=== PATIENT | male | born 1985 | race Caucasian/White ===

== ENCOUNTER 2016-11-12 02:46 | Emergency (ER) | payer OTHER ==
[2016-11-12 03:13] VITALS: BP 121/63; PULSE 68; TEMP 98.2; BMI 110.9
[2016-11-12] MEDS ORDERED: OXYCODONE/APAP 5/325MG COMBO TABLET PO ONE (03:14)
[2016-11-12] MEDS ORDERED: LIDOCAINE HCL 2% JELLY (5 ML/TUBE) ONE (03:18)
[2016-11-12] MEDS ORDERED: OXYCODONE/APAP 5/325MG COMBO TABLET ONE (03:18)
[2016-11-12] MEDS ORDERED: LIDOCAINE HCL 2% JELLY 10 ML CARTRIDGE PR ONE (03:19)
--- NOTE | 2016-11-12 03:34 | PDOC ---
History of Present Illness - General History Source: Patient <Thang Tee - Last Filed: 11/12/16 03:13> - General History Source: Patient Exam Limitations: No Limitations - History of Present Illness Initial Comments: 11/12/16 03:38 Patient is a 30 year old male with no past medical history who presents to the ED with complaint of painful hemorrhoids. He notes that he cannot sit down secondary to the pain. Patient notes that when they are bad they pop out, but once they are done they resolve on their own. Allergies: none PCP - Dr. Brian <Johanna Palm - Last Filed: 11/12/16 03:39> - General Stated Complaint: HEMORRHOIDS Time Seen by Provider: 11/12/16 03:10 Past History - Immunization History Immunization Up to Date: Yes - Psycho/Social/Smoking Cessation Hx Anxiety: No Suicidal Ideation: No Smoking History: Never smoked Have you smoked in the past 12 months: No Information on smoking cessation initiated: No Hx Alcohol Use: No Drug/Substance Use Hx: No Substance Use Type: None <NayThang - Last Filed: 11/12/16 03:13> <Johanna Palm - Last Filed: 11/12/16 03:39> - Past Medical History Allergies/Adverse Reactions: Allergies Allergy/AdvReac Type Severity Reaction Status Date / Time No Known Allergies Allergy Verified 11/12/16 03:21 Home Medications: Ambulatory Orders Oxycodone HCl/Acetaminophen [Percocet 5-325 mg Tablet] 1 - 2 tab PO Q6H #20 tablet MDD 4 11/12/16 Witch Lori 50% (Tucks) [Tucks Witch Lori Pads] 1 pad NR TID PRN 11/12/16 Review of Systems - Review of Systems Able to Perform ROS?: Yes Comments:: 11/12/16 03:38 CONSTITUTIONAL: Absent: fever, no chills, no fatigue EYES: Absent: visual changes ENT: Absent: ear pain, no sore throat CARDIOVASCULAR: Absent: chest pain, no palpitations RESPIRATORY: Absent: cough, no SOB GI: Present: hemarrhoids Absent: abdominal pain, no nausea, no vomiting, no constipation, no diarrhea GENITOURINARY: Absent: dysuria, no frequency, no hematuria MUSCULOSKELETAL: Absent: back pain, no arthralgia, no myalgia SKIN: Absent: rash <Johanna Palm - Last Filed: 11/12/16 03:39> *Physical Exam - Vital Signs Last Vital Signs Temp Pulse Resp BP Pulse Ox 98.2 F 68 18 121/63 98 11/12/16 03:11 11/12/16 03:11 11/12/16 03:11 11/12/16 03:11 11/12/16 03:11 <Thang Tee - Last Filed: 11/12/16 03:13> - Vital Signs Last Vital Signs Temp Pulse Resp BP Pulse Ox 98.2 F 68 18 121/63 98 11/12/16 03:11 11/12/16 03:11 11/12/16 03:11 11/12/16 03:11 11/12/16 03:11 - Physical Exam Comments: 11/12/16 03:38 GENERAL: Well-appearing, well-nourished. No apparent distress. HEENT: Normocephalic, atraumatic. PERRL, EOM intact. CARDIOVASCULAR: Normal S1, S2. Regular rate and rhythm. PULMONARY: Clear to auscultation bilaterally. ABDOMEN: Soft, non-distended, non-tender. EXTREMITIES: Normal ROM in all four extremities. No gross deformities. SKIN: Warm, dry. No rash NEUROLOGICAL: No focal neurological deficits. RECTAL EXAM: +internal hemorrhoids, no external, no bleeding, normal tone, mildly tender, non thrombosed <Johanna Palm - Last Filed: 11/12/16 03:39> ED Treatment Course - Medications Given in the ED: ED Medications Discontinued Medications Generic Name Dose Route Start Last Admin Trade Name Galdino PRN Reason Stop Dose Admin Lidocaine HCl 20 ml 11/12/16 03:19 11/12/16 03:20 Xylocaine 2% Uro-Jet MA 11/12/16 03:20 20 ml ONCE ONE Administration Oxycodone/Acetaminophen 1 combo 11/12/16 03:14 11/12/16 03:20 Percocet 5/325 - PO 11/12/16 03:15 1 combo ONCE ONE Administration <Johanna Palm - Last Filed: 11/12/16 03:39> Medical Decision Making - Medical Decision Making 11/12/16 03:35 Dr. Tee: The scribe's documentation has been prepared under my direction and personally reviewed by me in its entirery. I confirm that the note above accurately reflects all work, treatment, procedures, and medical decision making performed by me. <Thang Tee - Last Filed: 11/12/16 03:13> *DC/Admit/Observation/Transfer - Discharge Dispostion Admit: No <Thang Tee - Last Filed: 11/12/16 03:13> - Attestations Scribe Attestion: 11/12/16 03:38 Documentation prepared by GLENNA Perez, acting as expert medical writer for Thang Tee DO. <Johanna Palm - Last Filed: 11/12/16 03:39> Diagnosis at time of Disposition: Hemorrhoid Qualifiers: Hemorrhoid type: unspecified Qualified Code(s): K64.9 - Unspecified hemorrhoids - Discharge Dispostion Disposition: HOME - Prescriptions Prescriptions: Oxycodone HCl/Acetaminophen [Percocet 5-325 mg Tablet] 1 - 2 tab PO Q6H #20 tablet MDD 4 - Referrals Referrals: Toby Brian MD [Primary Care Provider] - Lanre Knowles MD [Staff Physician] - - Patient Instructions Printed Discharge Instructions: DI for Hemorrhoids Additional Instructions: avoid driving when taking Percocet. Decrease starch intake. Increase your fluid and fruits and vegetables. Follow up with the doctor referred to ypu in the ER. - Post Discharge Activity Work/School Note: Back to Work
== END 2016-11-12 03:48 | disposition home or self-care (01) ==
LOC: JER 02:46
DX: K64.9 Unspecified hemorrhoids (principal)
CPT/HCPCS: 99282-25

== ENCOUNTER 2017-05-12 05:00 | Emergency (ER) | payer OTHER ==
[2017-05-12 05:32] VITALS: BP 112/56; PULSE 50; TEMP 98.2; BMI 62.8
[2017-05-12] MEDS ORDERED: LIDOCAINE 2%/EPINEPHRINE 1:100000 (50 ML MD VIAL) INF ONE (05:35)
--- NOTE | 2017-05-12 06:21 | PDOC ---
History of Present Illness - General History Source: Patient Exam Limitations: No Limitations - History of Present Illness Initial Comments: 05/12/17 06:41 The patient is a 31-year-old male with no significant past medical history, and presents to the emergency department with thrombosed external hemorrhoids for the past few days. The patient has a history of recurrent thrombosed hemorrhoids (alternating between external and internal) over the last year. He states the pain has become unbearable now. He reports he took oxycontin and used topical lidocaine prior to arrival with moderate relief of pain. He notes he is frequently constipated. He states his PMD has previously done a hemorrhoidectomy to relieve the pain. 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 The patient denies chest pain or shortness of breath. The patient denies fever, chills, nausea, vomit, diarrhea and constipation. The patient denies dysuria, frequency, urgency and hematuria. Allergies: NKDA Past Surgical History: hemorrhoidectomy Social History: No toxic habits reported PCP: Dr. Brian <April Amato - Last Filed: 05/12/17 06:41> <Carmencita Cowan - Last Filed: 05/12/17 06:50> - General Chief Complaint: Pain Stated Complaint: HEMORRHOIDS Time Seen by Provider: 05/12/17 05:05 Past History <April Amato - Last Filed: 05/12/17 06:41> - Immunization History Immunization Up to Date: Yes - Psycho/Social/Smoking Cessation Hx Anxiety: No Suicidal Ideation: No Smoking History: Never smoked Have you smoked in the past 12 months: No Hx Alcohol Use: No Drug/Substance Use Hx: No Substance Use Type: None <Carmencita Cowan - Last Filed: 05/12/17 06:50> - Past Medical History Allergies/Adverse Reactions: Allergies Allergy/AdvReac Type Severity Reaction Status Date / Time No Known Allergies Allergy Verified 05/12/17 05:37 Home Medications: Ambulatory Orders NK [No Known Home Medication] 05/12/17 Review of Systems - Review of Systems Able to Perform ROS?: Yes Comments:: 05/12/17 06:41 CONSTITUTIONAL: Absent: fever, chills, diaphoresis, generalized weakness, malaise, loss of appetite HEENT: Absent: rhinorrhea, nasal congestion, throat pain, throat swelling, difficulty swallowing, mouth swelling, ear pain, eye pain, visual changes CARDIOVASCULAR: Absent: chest pain, syncope, palpitations, irregular heart rate, lightheadedness , peripheral edema RESPIRATORY: Absent: cough, shortness of breath, dyspnea with exertion, orthopnea, wheezing, stridor, hemoptysis GASTROINTESTINAL: Present: (+) hemorrhoids Absent: abdominal pain, abdominal distension, nausea, vomiting, diarrhea, constipation, melena, hematochezia GENITOURINARY: Absent: dysuria, frequency, urgency, hesitancy, hematuria, flank pain, genital pain MUSCULOSKELETAL: Absent: myalgia, arthralgia, joint swelling SKIN: Absent: rash, itching, pallor HEMATOLOGIC/IMMUNOLOGIC: Absent: easy bleeding, easy bruising, lymphadenopathy, frequent infections NEUROLOGIC: Absent: headache, focal weakness or paresthesias, dizziness, unsteady gait, seizure, mental status changes, bladder or bowel incontinence PSYCHIATRIC: Absent: anxiety, depression, suicidal or homicidal ideation, hallucinations. <April Amato - Last Filed: 05/12/17 06:41> *Physical Exam - Vital Signs Last Vital Signs Temp Pulse Resp BP Pulse Ox 98.2 F 50 L 18 112/56 98 05/12/17 05:25 05/12/17 05:25 05/12/17 05:25 05/12/17 05:25 05/12/17 05:25 - Physical Exam Comments: 05/12/17 06:41 GENERAL: Well developed, well nourished. Awake and alert. No acute distress. HEENT: Normocephalic, atraumatic. PERRLA, EOMI. No conjunctival pallor. Sclera are non- icteric. Moist mucous membranes. Oropharynx is clear. NECK: Supple. Full ROM. No JVD. Carotid pulses 2+ and symmetric, without bruits. No thyromegaly. No lymphadenopathy. CARDIOVASCULAR: Regular rate and rhythm. No murmurs, rubs, or gallops. Distal pulses are 2+ and symmetric. PULMONARY: No evidence of respiratory distress. Lungs clear to auscultation bilaterally. No wheezing, rales or rhonchi. ABDOMINAL: Soft. Non-tender. Non-distended. No rebound or guarding. No organomegaly. Normoactive bowel sounds. RECTAL: (+) Large 2 x 1 cm thrombosed external hemorrhoid on left anal region MUSCULOSKELETAL Normal range of motion at all joints. No bony deformities or tenderness. No CVA tenderness. EXTREMITIES: No cyanosis. No clubbing. No edema. No calf tenderness. SKIN: Warm and dry. Normal capillary refill. No rashes. No jaundice. NEUROLOGICAL: Alert, awake, appropriate. Cranial nerves 2-12 intact. No deficits to light touch and temperature in face, upper extremities and lower extremities. No motor deficits in the in face, upper extremities and lower extremities. Normoreflexic in the upper and lower extremities. Normal speech. Toes are down- going bilaterally. Gait is normal without ataxia. PSYCHIATRIC: Cooperative. Good eye contact. Appropriate mood and affect. <April Amato - Last Filed: 05/12/17 06:41> - Vital Signs Last Vital Signs Temp Pulse Resp BP Pulse Ox 98.2 F 50 L 18 112/56 98 05/12/17 05:25 05/12/17 05:25 05/12/17 05:25 05/12/17 05:25 05/12/17 05:25 <Carmencita Cowan - Last Filed: 05/12/17 06:50> Procedures - Incision and Drainage I&D Site: Left: Other (hemorrhoidectomy) Betadine cleansed: Yes Anesthesia: 1% Lidocaine Volume(ml): 3 Blade Size: 11 Dressing: Yes (viscous lidocaine and gauze) <Carmencita Cowan - Last Filed: 05/12/17 06:50> ED Treatment Course - Medications Given in the ED: ED Medications Discontinued Medications Generic Name Dose Route Start Last Admin Trade Name Freq PRN Reason Stop Dose Admin Lidocaine/Epinephrine 2 ml 05/12/17 05:35 05/12/17 05:45 Xylocaine 2%-Epi 1:100,000 INF 05/12/17 05:36 2 ml ONCE ONE Administration <April Amato - Last Filed: 05/12/17 06:41> - Medications Given in the ED: ED Medications Discontinued Medications Generic Name Dose Route Start Last Admin Trade Name Freq PRN Reason Stop Dose Admin Lidocaine/Epinephrine 2 ml 05/12/17 05:35 05/12/17 05:45 Xylocaine 2%-Epi 1:100,000 INF 05/12/17 05:36 2 ml ONCE ONE Administration <Carmencita Cowan - Last Filed: 05/12/17 06:50> Medical Decision Making - Medical Decision Making 05/12/17 06:49 Pt has painful external hemorrhoids. He had an elliptical incision and removal of small blood clot. Area was dressed with sterile gauze and vicous lidocaine Home with general surg follow up and sitz baths. Return for fever or infection or pain. <Carmencita Cowan - Last Filed: 05/12/17 06:50> *DC/Admit/Observation/Transfer - Attestations Scribe Attestion: 05/12/17 06:42 Documentation prepared by April Amato, acting as medical secretary for Carmencita Cowan MD. <April Amato - Last Filed: 05/12/17 06:41> - Discharge Dispostion Admit: No <Carmencita Cowan - Last Filed: 05/12/17 06:50> Diagnosis at time of Disposition: Thrombosed external hemorrhoid - Discharge Dispostion Disposition: HOME Condition at time of disposition: Stable - Referrals Referrals: Toby Brian MD [Primary Care Provider] - Barbara Montelongo MD [Staff Physician] - Nallely Fish MD [Staff Physician] - - Patient Instructions Printed Discharge Instructions: DI for Hemorrhoid Banding, DI for Hemorrhoidectomy, Hemorrhoids - Post Discharge Activity Work/School Note: Back to Work
== END 2017-05-12 06:46 | disposition home or self-care (01) ==
LOC: JER 05:00
PROC: 06BY0ZC Excision of Hemorrhoidal Plexus, Open Approach (ICD-10-PCS; principal; 2017-05-12)
DX: K64.5 Perianal venous thrombosis (principal)
CPT/HCPCS: 99282-25

== ENCOUNTER 2017-05-12 14:20 | Emergency (ER) | payer OTHER ==
[2017-05-12 14:45] VITALS: BMI 28.5
--- NOTE | 2017-05-12 15:41 | PDOC ---
History of Present Illness - General Chief Complaint: Hemorrhoids Stated Complaint: REVISIT Time Seen by Provider: 05/12/17 15:03 - History of Present Illness Initial Comments: 05/12/17 15:38 31 yo M with h/o recurrent hemorrhoids who presents with external hemorrhoids. Pt. recently evaluated in [facility] ED at 0630 ( 05/12) for painful external hemorrhoids and treated with elliptical incision and removal of small blood clot. He returns to ED with continued symptoms of rectal pain, and constipation. States that his visualized hemorrhoid with continued thrombosis. Denies any associated symptoms Past History - Past Medical History Allergies/Adverse Reactions: Allergies Allergy/AdvReac Type Severity Reaction Status Date / Time No Known Allergies Allergy Verified 05/12/17 14:45 Home Medications: Ambulatory Orders Polyethylene Glycol 3350 [Miralax (For Bowel Prep) -] 17 gm PO DAILY #1 bottle 05/12/17 Other medical history: hemmorhoids - Immunization History Immunization Up to Date: Yes - Psycho/Social/Smoking Cessation Hx Anxiety: No Suicidal Ideation: No Smoking History: Never smoked Have you smoked in the past 12 months: No Hx Alcohol Use: Yes ("socially") Drug/Substance Use Hx: No Substance Use Type: None Review of Systems - Review of Systems Comments:: 05/12/17 16:26 GENERAL/CONSTITUTIONAL: No fever or chills. No weakness. HEAD, EYES, EARS, NOSE AND THROAT: No change in vision. No ear pain or discharge. No sore throat.- CARDIOVASCULAR: No chest pain or shortness of breath RESPIRATORY: No cough, wheezing, or hemoptysis. GASTROINTESTINAL: No nausea, vomiting, diarrhea or constipation. GENITOURINARY: No dysuria, frequency, or change in urination. MUSCULOSKELETAL: No joint or muscle swelling or pain. No neck or back pain. SKIN: No rash NEUROLOGIC: No headache, vertigo, loss of consciousness, or change in strength/ sensation. ENDOCRINE: No increased thirst. No abnormal weight change HEMATOLOGIC/LYMPHATIC: No anemia, easy bleeding, or history of blood clots. ALLERGIC/IMMUNOLOGIC: No hives or skin allergy. *Physical Exam - Vital Signs Last Vital Signs Temp Pulse Resp BP Pulse Ox 98.6 F 60 16 118/66 95 05/12/17 14:42 05/12/17 14:42 05/12/17 14:42 05/12/17 14:42 05/12/17 14:42 - Physical Exam Comments: 05/12/17 16:26 GENERAL: Awake, alert, and fully oriented, in no acute distress LUNGS: No distress, speaks full sentences, clear to auscultation bilaterally HEART: Regular rate and rhythm, normal S1 and S2, no murmurs, rubs or gallops, peripheral pulses normal and equal bilaterally. Rectum: + 2 x 2 cm external hemorrhoid with evidence of thrombosis. SKIN: Warm, Dry, normal turgor, no rashes or lesions noted. Procedures - Additional Procedures Additional Procedures: other (Hemmorhoid Thrombectomy with ) Medical Decision Making - Medical Decision Making 05/12/17 16:23 31 yo M with h/o recurrent hemorrhoids who presents with external hemorrhoids. Pt. returns to ED following visit at 0630 ( 05/12) for continued hemmorhoidal pain and concern for continued thrombosis despite earlier thrombectomy. Physical exam reveals 2 x 2 cm hemmorhoid with evidence of thrombosis. ED Course: - hemorrhoid thrombectomy - Large hemorrhoidal clots removed. Pt. clinical status improved. Pt counseled on constipation control and told to f/u with Dr. Sumanth Patton for surgical eval. *DC/Admit/Observation/Transfer Diagnosis at time of Disposition: Thrombosed external hemorrhoid - Discharge Dispostion Disposition: HOME Condition at time of disposition: Improved Admit: No - Prescriptions Prescriptions: Polyethylene Glycol 3350 [Miralax (For Bowel Prep) -] 17 gm PO DAILY #1 bottle - Referrals Referrals: Sumanth Patton MD [Staff Physician] - Toby Brian MD [Primary Care Provider] - - Patient Instructions Additional Instructions: Please return to ED if you experience fevers/chills, nausea or vomitting, or worsening symptoms. Please take Miralax regularly for constipation. Print Language: BULGARIAN
--- NOTE | 2017-05-12 16:04 | PDOC ---
Attending Attestation - Resident Resident Name: Walter Balderasson - ED Attending Attestation I have performed the following: I have examined & evaluated the patient, The case was reviewed & discussed with the resident, I agree w/resident's findings & plan, Exceptions are as noted - HPI HPI: 05/12/17 16:04 31-year-old male with history of external hemorrhoids presents back to the emergency department for recurrence of external thrombosed hemorrhage. The patient had an incision performed for the throat was hemorrhoid but the pain recurred and the thrombosed recurred. Because of the pain, the patient return to the ER. - Physicial Exam PE: 05/12/17 16:07 GENERAL: Awake, alert, and fully oriented, in no acute distress. HEAD: No signs of trauma EYES: PERRLA, EOMI, sclera anicteric, conjunctiva clear ENT: Auricles normal inspection, hearing grossly normal, nares patent, oropharynx clear without exudates. NECK: Normal ROM, supple, no lymphadenopathy, JVD, or masses EXTREMITIES: Normal range of motion, no edema. No clubbing or cyanosis. No cords, erythema, or tenderness NEUROLOGICAL: Cranial nerves II through XII grossly intact. Normal speech, normal gait SKIN: Warm, Dry, normal turgor, no rashes or lesions noted. RECTUM: Large ~3x3 cm thrombosed external hemorrhoid on R side of rectum. - Medical Decision Making 05/12/17 16:08 Vital Signs Temp Pulse Resp BP Pulse Ox 98.6 F 60 16 118/66 95 05/12/17 14:42 05/12/17 14:42 05/12/17 14:42 05/12/17 14:42 05/12/17 14:42 The external hemorrhoid is thrombosed. With the patient's consent, the site was cleaned with chlorhexidine. Approximate 5 mL of 1% lidocaine without epinephrine was injected at the base of external hemorrhoid. An incision was made while avoiding the anal sphincter. Significant amount of blood clots have been expressed from the hemorrhoid. 0.25 packing was placed. Patient to return to the ER or to his doctor in 2 days for wound check. She should be referred to a gel surgeon for definitive care. Stool softeners, sitz bath.
[2017-05-12 16:39] VITALS: BP 120/64; PULSE 64; TEMP 98
== END 2017-05-12 16:39 | disposition home or self-care (01) ==
LOC: JER 14:20
PROC: 06BY0ZC Excision of Hemorrhoidal Plexus, Open Approach (ICD-10-PCS; principal; 2017-05-12)
DX: K64.5 Perianal venous thrombosis (principal)
CPT/HCPCS: 99282-25

== ENCOUNTER 2017-05-14 13:53 | Emergency (ER) | payer OTHER ==
[2017-05-14 14:02] VITALS: BP 114/61; PULSE 70; TEMP 98; BMI 29.1
[2017-05-14] MEDS ORDERED: KETOROLAC TROMETHAMINE 60 MG/2 ML VIAL IM ONE (14:38)
[2017-05-14] MEDS ORDERED: KETOROLAC TROMETHAMINE 60 MG/2 ML VIAL ONE (14:41)
--- NOTE | 2017-05-14 14:45 | PDOC ---
History of Present Illness - General Chief Complaint: Revisit,Wound Recheck Stated Complaint: HEMORRHOIDS Time Seen by Provider: 05/14/17 14:13 History Source: Patient Exam Limitations: No Limitations - History of Present Illness Initial Comments: 05/14/17 14:58 Return for recurrence of thrombosed hemorrhoid. Was seen twice 2 days ago with incision and drainage of one hemorrhoid. Patient is concerned may have more than one area. Occurred: reports: last week Severity: reports: moderate Modifying Factors: improves with: None Past History - Travel Traveled outside of the country in the last 30 days: No Close contact w/someone who was outside of country & ill: No - Past Medical History Allergies/Adverse Reactions: Allergies Allergy/AdvReac Type Severity Reaction Status Date / Time No Known Allergies Allergy Verified 05/14/17 14:02 Home Medications: Ambulatory Orders Polyethylene Glycol 3350 [Miralax (For Bowel Prep) -] 17 gm PO DAILY #1 bottle 05/12/17 Hydrocortisone 2.5% Topical Cr [Anusol 2.5% Hc Cream -] 1 applic RC BID #1 tube 05/14/17 Oxycodone HCl/Acetaminophen [Percocet 5-325 mg Tablet -] 1 - 2 tab PO Q4H PRN # 10 tablet MDD 6 05/14/17 - Immunization History Immunization Up to Date: Yes - Psycho/Social/Smoking Cessation Hx Anxiety: No Suicidal Ideation: No Smoking History: Never smoked Have you smoked in the past 12 months: No Information on smoking cessation initiated: No Hx Alcohol Use: Yes ("socially") Drug/Substance Use Hx: No Substance Use Type: None Review of Systems - Review of Systems Able to Perform ROS?: Yes Is the patient limited Citizen Of [place] proficient: Yes Constitutional: Yes: Symptoms Reported, See HPI. No: Fever, Malaise HEENTM: No: Symptoms Reported ABD/GI: Yes: Symptoms Reported, See HPI, Rectal Bleeding (pain with hemorhoids ) All Other Systems: Reviewed and Negative *Physical Exam - Vital Signs Last Vital Signs Temp Pulse Resp BP Pulse Ox 98 F 70 18 114/61 97 05/14/17 13:59 05/14/17 13:59 05/14/17 13:59 05/14/17 13:59 05/14/17 13:59 - Physical Exam General Appearance: Yes: Nourished, Appropriately Dressed HEENT: positive: Harshal MERRITT Normal Gastrointestinal/Abdominal: positive: Normal Bowel Sounds, Soft Male Genitalia: positive: normal genitalia Rectal Exam: positive: hemorrhoids (with firm thormobosis/ 2 different sites/ clustered) Integumentary: positive: Normal Color Neurologic: positive: cell efficiency supervisor II-XII NML intact, Fully Oriented, Alert, Normal Mood/ Affect, Normal Response, Motor Strength 5/5 Procedures - Incision and Drainage I&D Site: Left: Buttock (hemorhoid x 2 with lartge clots extracted) Betadine cleansed: Yes Anesthesia: 1% Lidocaine Blade Size: 11 Iodinated Packin/4 in Plain Packing: No Complications: none Dressing: Yes Progress Note - Progress Note Progress Note: Thrombosed hemorrhoids, excised and drained 2 more and encouraged to follow up tomorrow with surgeon and provifded for Rx for 10 Percocet tablets *DC/Admit/Observation/Transfer Diagnosis at time of Disposition: Thrombosed external hemorrhoid - Discharge Dispostion Disposition: HOME Condition at time of disposition: Stable Admit: No - Referrals Referrals: Toby Brian MD [Primary Care Provider] - Sumanth Patton MD [Staff Physician] - - Patient Instructions Printed Discharge Instructions: DI for Hemorrhoids Additional Instructions: Warm sitz baths, hot soaks 3-4 times a day to keep area draining and softened Avoid removal of packing until seen by surgeon tomorrow Use 1 tablespoon of olive oil nightly to keep stool soft, may use Colace over- the-counter continue high fiber diet - Post Discharge Activity Work/School Note: Back to Work
== END 2017-05-14 15:06 | disposition home or self-care (01) ==
LOC: JERFT 13:53
PROC: 06BY0ZC Excision of Hemorrhoidal Plexus, Open Approach (ICD-10-PCS; principal; 2017-05-14)
PROC: 3E0233Z Introduction of Anti-inflammatory into Muscle, Percutaneous Approach (ICD-10-PCS; 2017-05-14)
DX: K64.5 Perianal venous thrombosis (principal)
CPT/HCPCS: 99281-25

== ENCOUNTER 2017-06-01 15:34 | Emergency (ER) | payer OTHER ==
[2017-06-01 15:41] VITALS: BP 112/70; PULSE 60; TEMP 98.6; BMI 28.5
--- NOTE | 2017-06-01 17:25 | PDOC ---
History of Present Illness - General Chief Complaint: Injury Stated Complaint: R THUMB INJURY Time Seen by Provider: 06/01/17 16:48 History Source: Patient Exam Limitations: No Limitations - History of Present Illness Initial Comments: 06/01/17 17:11 Playing softball yesterday and hyperextended his right thumb. States while cleaning glasses washing glasses last night, hyper extended his finger/thumb and index finger wound to rim of glass and had an acute onset of tingling and pain to his thumb with immediate swelling and bruising Occurred: reports: yesterday Severity: reports: mild Pain Location: reports: upper extremity (right thumb) Method of Injury: Yes: direct blow Modifying Factors: improves with: None Past History - Travel Traveled outside of the country in the last 30 days: No Close contact w/someone who was outside of country & ill: No - Past Medical History Allergies/Adverse Reactions: Allergies Allergy/AdvReac Type Severity Reaction Status Date / Time No Known Allergies Allergy Verified 06/01/17 15:41 Home Medications: Ambulatory Orders NK [No Known Home Medication] 06/01/17 Other medical history: Hemorroids - Immunization History Immunization Up to Date: Yes - Suicide/Smoking/Psychosocial Hx Smoking History: Never smoked Have you smoked in the past 12 months: No Information on smoking cessation initiated: No Hx Alcohol Use: No Drug/Substance Use Hx: No Substance Use Type: None Trauma Specific PMHX - Complaint Specific PMHX Back Injury: No Neck Injury: No Review of Systems - Review of Systems Able to Perform ROS?: Yes Is the patient limited Italian proficient: Yes Constitutional: Yes: Symptoms Reported, See HPI. No: Malaise HEENTM: No: Symptoms Reported Respiratory: Yes: Symptoms reported Musculoskeletal: Yes: Symptoms Reported, See HPI, Joint Pain, Joint Swelling ( right thumb and IP joint, extending into MCP) All Other Systems: Reviewed and Negative *Physical Exam - Vital Signs Last Vital Signs Temp Pulse Resp BP Pulse Ox 98.6 F 60 19 112/70 97 06/01/17 15:38 06/01/17 15:38 06/01/17 15:38 06/01/17 15:38 06/01/17 15:38 - Physical Exam General Appearance: Yes: Nourished, Appropriately Dressed, Apparent Distress HEENT: positive: RENÉ, Normal ENT Inspection, TMs Normal, Pharynx Normal Musculoskeletal: positive: Normal Inspection Extremity: positive: Normal Capillary Refill. 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 *DC/Admit/Observation/Transfer Diagnosis at time of Disposition: Thumb sprain Qualifiers: Encounter type: initial encounter Sprain of finger site: metacarpophalangeal joint Laterality: right Qualified Code(s): S63.641A - Sprain of metacarpophalangeal joint of right thumb, initial encounter - Discharge Dispostion Disposition: HOME Condition at time of disposition: Good Admit: No - Referrals Referrals: Toby Brian MD [Primary Care Provider] - Krishan Tamayo MD [Staff Physician] - - Patient Instructions Printed Discharge Instructions: How to Use a Sling, DI for Ulnar Collateral Ligament Sprain of Thumb Additional Instructions: Rest, ice to area on and off for 15 minutes 4-6 times a day Avoid heavy lifting or exercise until pain and swelling is resolved or until further directed Keep area highly elevated to reduce swelling Use splints/Chris wrap as directed Followup with orthopedist in one to 2 days if not improving, if significantly improved may wait one week for followup with orthopedist May use ibuprofen 2-200 mg tablets every 6 hours as needed for pain - Post Discharge Activity Forms/Work/School Notes: Back to Work
== END 2017-06-01 17:42 | disposition home or self-care (01) ==
LOC: JERFT 15:34
DX: S63.641A Sprain of metacarpophalangeal joint of right thumb, initial encounter (principal); X50.0XXA Overexertion from strenuous movement or load, initial encounter; Y93.64 Activity, baseball; Y92.320 Baseball field as the place of occurrence of the external cause; Y99.8 Other external cause status
CPT/HCPCS: 73130-TC-RT; 99281-25

== ENCOUNTER 2020-11-27 12:21 | Emergency (ER) | payer OTHER ==
[2020-11-27 12:44] VITALS: BP 146/71; PULSE 63; TEMP 98.3; BMI 30.7
[2020-11-27] MEDS ORDERED: DIPHTH,PERTUSS(ACELL),TET 0.5 ML DISP.SYRIN IM ONE ×2 (13:05→13:07)
== END 2020-11-27 14:17 | disposition home or self-care (01) ==
LOC: JERFT 12:21
PROC: 0HQFXZZ Repair Right Hand Skin, External Approach (ICD-10-PCS; principal; 2020-11-27)
PROC: 3E0234Z Introduction of Serum, Toxoid and Vaccine into Muscle, Percutaneous Approach (ICD-10-PCS; 2020-11-27)
DX: S61.011A Laceration without foreign body of right thumb without damage to nail, initial encounter (principal)
CPT/HCPCS: 73130-TC-RT-FY; 90715; 99284-25

== ENCOUNTER 2020-12-08 10:56 | Emergency (ER) | payer OTHER ==
[2020-12-08 11:02] VITALS: BP 108/65; PULSE 66; TEMP 97.9; BMI 30.5
== END 2020-12-08 11:28 | disposition home or self-care (01) ==
LOC: JER 10:56 → JERFT 10:56
DX: Z48.02 Encounter for removal of sutures (principal)
CPT/HCPCS: 99281-25

== ENCOUNTER 2023-01-10 18:46 | Emergency (ER) | payer OTHER ==
[2023-01-10 18:51] VITALS: BP 122/80; PULSE 66; RESP 18; TEMP 98; BMI 31.1
[2023-01-10] MEDS ORDERED: LIDOCAINE 5% TOPICAL PATCH TP ONE (19:29)
[2023-01-10] MEDS ORDERED: IBUPROFEN 600 MG TABLET (FP) PO ONE ×2 (19:30→21:08)
[2023-01-10] MEDS ORDERED: METHOCARBAMOL 500 MG TABLET PO ONE (19:33)
[2023-01-10] MEDS ORDERED: LIDOCAINE 5% TOPICAL PATCH ONE (21:07)
[2023-01-10] MEDS ORDERED: METHOCARBAMOL 500 MG TABLET ONE (21:08)
[2023-01-11] MEDS ORDERED: LIDOCAINE PATCH REMOVAL MC SCH (08:00)
== END 2023-01-10 23:20 | disposition home or self-care (01) ==
LOC: JER 18:46
DX: M54.6 Pain in thoracic spine (principal); M54.2 Cervicalgia; R20.2 Paresthesia of skin; S29.012A Strain of muscle and tendon of back wall of thorax, initial encounter; X58.XXXA Exposure to other specified factors, initial encounter
CPT/HCPCS: 99283-25